=== PATIENT | female | born 1980 | race Caucasian/White ===

== ENCOUNTER 2023-12-24 17:14 | Outpatient (OUT) | payer BC, SELFPAY ==
--- NOTE | 2023-12-24 17:29 | XR_ITS ---
The [address] [address] Patient Name: AMBAR VARGAS MRN: [id number] date: 1980 Sex: F Assigned Patient Location: [facility] Current Patient Location: Accession/Order Number: [id number] Exam Date: 12/24/2023 17:23 Report Date: 12/28/2023 07:52 At the request of: MANJU BAY Procedure: XR knee LT 3V PROCEDURE: XR knee LT 3V HISTORY: Knee internal derangement, M23.90 COMPARISON: None. FINDINGS: BONES:No fracture, acute abnormality, or significant arthropathy. No appreciable joint space narrowing, but evaluation is slightly limited by projection. SOFT TISSUES:No visible soft tissue swelling. EFFUSION:None visible. OTHER: Negative. XR/XR knee LT 3V IMPRESSION: 1. No acute bone abnormality or appreciable degenerative changes. Electronically authenticated by: JOHN YOUNG Date: 12/28/2023 07:52
== END 2023-12-24 17:15 | disposition home or self-care (01) ==
PROVIDERS: PCP Family Medicine; Visit Provider Family Medicine
DX: M23.92 Unspecified internal derangement of left knee (principal)
CPT/HCPCS: 73562

== ENCOUNTER 2024-01-06 15:52 | Outpatient (OUT) | payer BC, SELFPAY ==
--- NOTE | 2024-01-06 | US_ITS ---
The [place] [id number] Patient Name: AMBAR VARGAS MRN: [id number] date: 1980 Sex: F Assigned Patient Location: MRI Current Patient Location: Accession/Order Number: [id number] Exam Date: 01/06/2024 16:36 Report Date: 01/07/2024 07:21 At the request of: MANJU BAY Procedure: US venous doppler LE LT CLINICAL DATA: Left leg edema PROCEDURE: Left lower extremity venous duplex ultrasound TECHNIQUE: Tejada-scale, color flow, and waveform spectral analysis was performed of the left lower extremity. FINDINGS: The left common femoral, profunda femoral, femoral, and popliteal veins were compressible. The saphenous vein was compressible. No venous thrombosis was seen. The veins fill with color Doppler. Augmentation was normal. US/US venous doppler LE LT IMPRESSION: 1. No acute lower extremity deep venous thrombosis. 2. No superficial venous thrombosis. Electronically authenticated by: Eileen CHAVEZ Date: 01/07/2024 07:21
--- NOTE | 2024-01-06 | MR_ITS ---
[address] [address] Patient Name: AMBAR VARGAS MRN: [id number] date: 1980 Sex: F Assigned Patient Location: MRI Current Patient Location: MRI Accession/Order Number: [id number] Exam Date: 01/06/2024 16:01 Report Date: 01/07/2024 09:15 At the request of: MANJU BAY Procedure: MR knee LT wo con EXAMINATION: MR knee LT wo con HISTORY: Internal Derangment COMPARISON: No relevant comparison available. TECHNIQUE: A complete multi-planar MRI was performed. FINDINGS: MEDIAL COMPARTMENT MEDIAL MENISCUS: Complex tear of the medial meniscus with a horizontal component extending from the anterior to the posterior horn through the body and a vertical component in the posterior horn extending from the superior to the inferior articular surface CARTILAGE: No visible defect. BONES: No marrow pathology, fracture, or significant arthropathy. MCL AND MEDIAL CAPSULE: Normal medial collateral ligament and medial capsule. LATERAL COMPARTMENT LATERAL MENISCUS: No visible tear or significant degeneration. CARTILAGE: No visible defect. BONES: No marrow pathology, fracture, or significant arthropathy. LCL/POSTEROLAT COMPLEX: Normal lateral collateral ligament, fascicles, lateral capsule and ligaments. ANTERIOR COMPARTMENT PATELLA: No marrow pathology, fracture, or significant arthropathy. CARTILAGE: No visible defect. TENDONS: Normal. EFFUSION: Moderate joint effusion. ACL: Normal appearing ligament. PCL: Normal appearing ligament. MENISCOFEMORAL: Normal meniscofemoral ligaments. OTHER: Negative. MR/MR knee LT wo con IMPRESSION: Complex tear of the medial meniscus with moderate joint effusion Electronically authenticated by: MARYCARMEN KEITA Date: 01/07/2024 09:15
== END 2024-01-06 15:53 | disposition home or self-care (01) ==
LOC: MRI 15:52
PROVIDERS: PCP Family Medicine; Visit Provider Family Medicine
DX: M23.90 Unspecified internal derangement of unspecified knee (principal); S83.232A Complex tear of medial meniscus, current injury, left knee, initial encounter
CPT/HCPCS: 73721; 93971

== ENCOUNTER 2024-02-02 09:44 | Outpatient (OUT) | payer BC, SELFPAY ==
--- OUTSIDE RECORDS SUMMARY | 2024-02-02 10:02 | XMS_ITS | CCD ---
Author Organization [facility] Care Team Providers Care Tire Assembler Name Role Phone SHANIQUE, DR NUNES Primary Care Unavailable GAGE, DR THOMAS Consulting Unavailable GAGE, DR THOMAS Admitting Unavailable GAGE, DR THOMAS Attending Unavailable GAGE, DR THOMAS Attending Unavailable ELYSIAY, DR NUNES Primary Care Unavailable GAGE, DR THOMAS Admitting Unavailable GAGE, DR THOMAS Attending Unavailable SHANIQUE, DR NUNES Primary Care Unavailable GAGE, DR THOMAS Consulting Unavailable GAGE, DR THOMAS Admitting Unavailable LIYAH II, FARTUN Consulting Unavailable KRISTIAN ROLLE Consulting Unavailable NAEEM LI Consulting Unavailable GAGE, DR THOMAS Attending Unavailable SHANIQUE, DR NUNES Primary Care Unavailable GAGE, DR THOMAS Consulting Unavailable GAGE, DR THOMAS Admitting Unavailable SHANIQUE, DR NUNES Admitting Unavailable SHANIQUE, DR NUNES Attending Unavailable SHANIQUE, DR NUNES Primary Care Unavailable SHANIQUE, DR NUNES Primary Care Unavailable GAGE, DR THOMAS Admitting Unavailable GAGE, DR THOMAS Attending Unavailable SHANIQUE, DR NUNES Admitting Unavailable SHANIQUE, DR NUNES Attending Unavailable SHANIQUE, DR NUNES Primary Care Unavailable SHANIQUE, DR NUNES Primary Care Unavailable GAGE, DR THOMAS Admitting Unavailable GAGE, DR THOMAS Attending Unavailable GAGE, DR THOMAS Consulting Unavailable SHANIQUE, DR NUNES Admitting Unavailable SHANIQUE, DR NUNES Attending Unavailable SHANIQUE, DR NUNES Consulting Unavailable SHANIQUE, DR NUNES Primary Care Unavailable SHANIQUE, DR NUNES Primary Care Unavailable GAGE, DR THOMAS Consulting Unavailable GAGE, DR THOMAS Admitting Unavailable GAGE, DR THOMAS Attending Unavailable MARYCARMEN JIMENEZ Consulting Unavailable Unavailable Primary Care Provider UnavailMARYCARMEN Christianson Referring Unavailabl e PROVIDER, UNKNOWN Attending Unavailable PROVIDER, UNKNOWN Admitting Unavailable Layla Sharif Attending Unavailab Layla Bernal Admitting Unavailab MANJU Blanc Primary Care Unavailable Allergies Allergy Classification Reported Allergen(s) Allergy Type Date of Onset Reaction(s) Facility (1 source) Erythromycin Drug Allergy 06-08-2014 [facility] Repository (1 source) Erythromycin; Translations: [erythromycin] Drug Allergy [facility] Repository Problems Active Problems Problem Classification Problem Date Documented Date Episodic/Chronic Asthma (1 source) Unspecified asthma, uncomplicated; Translations: [UNSPECIFIED ASTHMA UNCOMPLICATED] Onset: 08-21-2021 Chronic Immunizations and screening for infectious disease (2 sources) Encounter for screening for human papillomavirus (HPV); Translations: [Encounter for screening for infections with a predominantly sexual mode of transmission] Onset: 11-11-2021 Episodic Menstrual disorders (6 sources) Excessive and frequent menstruation with irregular cycle; Translations: [Dysmenorrhea, unspecified] Onset: 03-14-2022 Chronic Other female genital disorders (1 source) Unspecified dyspareunia; Translations: [UNSPECIFIED DYSPAREUNIA] Onset: 03-21-2022 Chronic Other female genital disorders (1 source) Abnormal uterine and vaginal bleeding, unspecified; Translations: [ABNORMAL UTERINE VAGINAL BLEED UNS] Onset: 03-14-2022 Chronic Other female genital disorders (1 source) Other specified noninflammatory disorders of cervix uteri; Translations: [OTH SPEC NONINFLAMM D/O CERV UTERI] Onset: 02-17-2022 Episodic Other screening for suspected conditions (not mental disorders or infectious disease) (5 sources) Encounter for screening for malignant neoplasm of cervix; Translations: [Encounter for screening for malignant neoplasm of rectum] Onset: 08-21-2021 Episodic Other upper respiratory infections (2 sources) Sinusitis; Translations: [Chronic sinusitis, unspecified] Onset: 11-15-2022 11-15-2022 Chronic Substance-related disorders (1 source) Nicotine dependence, cigarettes, uncomplicated; Translations: [NICOTINE DEPEND CIGARETTES UNCOMP] Onset: 03-21-2022 Chronic Unclassified (1 source) PERSONAL HISTORY OF COVID-19; Translations: [PERSONAL HISTORY OF COVID-19] Onset: 03-21-2022 Unclassified (4 sources) CONTACT W/AND (SUSP) EXPOS COVID-19; Translations: [CONTACT W/AND (SUSP) EXPOS COVID-19] Onset: 08-21-2021 Past or Other Problems Problem Classification Problem Date Documented Date Episodic/Chronic Deficiency and other anemia (1 source) Anemia, unspecified; Translations: [ANEMIA UNSPECIFIED] Onset: 08-21-2021 Episodic Diabetes mellitus without complication (1 source) Other abnormal glucose; Translations: [OTHER ABNORMAL GLUCOSE] Onset: 08-21-2021 Episodic Other female genital disorders (4 sources) Other specified noninflammatory disorders of vagina; Translations: [OTH SPEC NONINFLAMMATORY D/O VAGINA] Onset: 11-07-2021 Episodic Unclassified (1 source) CONTACT W/AND (SUSP) EXPOS COVID-19; Translations: [CONTACT W/AND (SUSP) EXPOS COVID-19] Onset: 08-17-2021 Results Test Name Value Interpretation Reference Range Facility Coding Queryon 04-11-2023 Coding Query Can you please document the HPI, ROS and physical exam for this chart? Thanks. Layla Sharif MD [Transcribed on: 04/11/2023 13:00 EST] RR Normal [facility] CT Head or Brain w/o Contras ton 04-08-2023 CT Head or Brain w/o Contrast HEAD CT WITHOUT CONTRAST: 04/08/2023 1:22 PM EST Clinical Data: headache Comparison: April 20, 2014 Unenhanced axial data from base to vertex. INTRA-AXIAL: No acute hemorrhage. No acute infarction is evident. EXTRA-AXIAL: No acute hemorrhage. No focal fluid collection. BRAIN VOLUME: Unremarkable for age. VENTRICLES: No hydrocephalus PARANASAL SINUSES: Interval bilateral FESS. Moderate rind of mucosal thickening right maxillary antrum. Modest mucosal disease in the left maxillary antrum. Modest disease in aspects of the anterior ethmoids. These findings are greater than on the prior study. MASTOIDS: Clear. CALVARIUM: No acute finding. EXTRACALVARIAL: No acute findings IMPRESSION: 1. No evidence of acute intracranial process on this unenhanced study as described.. 2. Paranasal sinuses as described. All CT scans at this facility use dose modulation, iterative reconstruction, and/or weight based dosing when appropriate to reduce radiation dose to as low as reasonably achievable. Final Dictated by: Rodri Llanos MD Dictated DT/TM: 04/08/23 1:42 Signed (Electronic Signature): Rodri Llanos MD 04/08/23 1:48 pm Technologist: YURI Dalton [facility] ED Clinical Summaryon 2023 ED Clinical Summary [facility] - Emergency Department [address] [place] [id number] ED Clinical Summary PERSON INFORMATION Name: AMBAR VARGAS Age: 42 Years Sex: FEMALE : 1980 MRN: Acct#: Visit Reason: Headache; HEADACHE Arrival: 04/08/2023 11:57:20 Discharge: 04/08/2023 16:15:00 LOS: 000 04:18 Check In: 04/08/2023 11:57:20 Checkout:04/08/2023 16:15:00 Address: [facility] [address] PCP: MANJU BAY PROVIDER INFORMATION Provider Role Assigned Unassigned Anjum Mcclure RN ED Nurse 04/08/2023 12:22:44 Layla Sharif MD ED Provider 04/08/2023 13:05:12 VITALS INFORMATION Vital Sign Triage Latest Temperature Tympanic Temperature Temporal Artery 36.7 DegC Pulse Rate O2 Sat 100 % 100 % Respiratory Rate 16 br/min 16 br/min Blood Pressure /104 mmHg /104 mmHg MEDICAL INFORMATION Medications Given: Medication Dose Route ketorolac 30 mg Intramuscular diphenhydrAMINE 50 mg Intramuscular ondansetron 4 mg Oral amoxicillin-clavulana te (amoxicillin-clavulan ate 875 mg-125 mg tablet) 1 tab(s) Oral pseudoephedrine 30 mg Oral Allergy Information: erythromycin PHYSICIAN DOCUMENTATION DISCHARGE INFORMATION: Discharge Disposition: Home Discharge Location: Home PATIENT EDUCATION INFORMATION Instructions: Sinus Infection, Adult; Sinus Infection, Adult Follow-Up: With: Address: When: DARLENE SMITH [address] [place] [id number] Within 3 to 5 days Comments: Call for follow up appointment DIAGNOSIS: 1:Sinusitis Patient Understands: Yes - Patient/family/guadalupe diego verbalizes understanding of instructions given Comment: Normal [facility] ED Patient Summaryon 024 ED Patient Summary [facility] - Emergency Department [address] [place] [address] PATIENT DISCHARGE INSTRUCTIONS Patient Information Name: AMBAR VARGAS Age: 42 Years Date of : 1980 Reason For Visit: Headache; HEADACHE Arrival Time: 04/08/2023 11:57:20 Primary Care Physician: MANJU BAY Attending Physician: Layla Sharif MD Comment: Visit Diagnosis: Diagnoses This Visit Headache ([id number]) Sinusitis (J32.9) The Pharmacy at [facility] is open Friday through Friday from 9A to 6P and Friday and Friday from 9A to 5P Prescription Information: If you have been given a prescription for narcotics, seek immediate medical attention if you have any difficulty breathing or any sudden status changes such as confusion and sleepiness. If you or anyone you know is experiencing suicidal thoughts, mental health, alcohol and/or drug addiction problems; contact the [facility] 23/09 Crisis Hotline -Text 3ZORW af 663234. If you received any narcotics, sedation, or any other medication that causes drowsiness for the next 24 hours, unless otherwise directed: ? Do not drive a car. ? Do not operate machinery such as power tools, lawn mowers, drills, sewing machines, or stoves ? Avoid alcoholic beverages and drugs for allergies, nerves, or sleep ? Do not make important personal or business decisions or sign any legal documents With: Address: When: DARLENE SMITH [address] [place] [id number] Within 3 to 5 days Comments: Call for follow up appointment Medication Information: The exam and treatment you received today in the [facility] were for an urgent problem and are not intended as complete care. It is important for you to follow up with a doctor, nurse practitioner, or physician?s marketing communications assistant for ongoing care. If your symptoms become worse or you do not improve as expected and you are unable to reach your usual health care provider, you should return to the Emergency Department, we are available 24 hours a day. For those patients who have received Radiology results, the interpretation of your X-ray as given to you by our Emergency Department physician is only a preliminary report. The Radiologist will review your films and if there is a change in the diagnosis you will be notified by phone. Please make sure you have provided a working phone number so we can reach you if necessary. In the event that you had a lab culture while you were a patient in the Emergency Department, you will be notified by phone if there is a need to change your antibiotic. Please make sure you have provided a working phone number so we can reach you if necessary. [facility] Emergency Department has provided you with a complete list of medications post discharge. Please inform your land inspector/provider of your visit and for further instruction on these medications. Any specific questions regarding your chronic medications and dosages should be discussed with your primary care physician(s) and/or pharmacist. New Medications [facility], [address] [place] [phone], [phone] amoxicillin-clavulana te (amoxicillin-clavulan ate 875 mg-125 mg oral tablet) 1 tab(s) Oral (given by mouth) Every 12 hours scheduled time for 10 Days. Refills: 0. Printed Prescriptions amoxicillin (amoxicillin 875 mg oral tablet) 1 tab(s) Oral (given by mouth) Every 12 hours scheduled time for 10 Days. Refills: 0. Visit Information Allergies: Substance Reaction Symptoms Type Comments erythromycin Drug Vital Signs: Vitals and Measurements this Visit (last charted value for your 04/08/2023 visit) Vital Signs This Visit Temperature Temporal Artery: 36.7 DegC Heart Rate Monitored: 90 bpm Respiratory Rate: 16 br/min Systolic Blood Pressure: 135 mmHg Diastolic Blood Pressure: 104 mmHg SpO2: 100 % Oxygen Therapy: Room air Measurements This Visit Height/Length Measured: 165.10 cm Weight Measured: 90.26 kg Weight Dosin.260 kg Body Mass Index: 33.11 kg/m2 Problems List: Problem Onset Comments Tobacco user Patient Education Sinus Infection, Adult A sinus infection, also called sinusitis, is inflammation of your sinuses. Sinuses are hollow spaces in the bones around your face. Your sinuses are located: ? Around your eyes. ? In the middle of your forehead. ? Behind your nose. ? In your cheekbones. Mucus normally drains out of your sinuses. When your nasal tissues become inflamed or swollen, mucus can become trapped or blocked. This allows bacteria, viruses, and fungi to grow, which leads to infection. Most infections of the sinuses are caused by a virus. A sinus infection can develop quickly. It can last for up to 4 weeks (acute) or for more than 12 weeks (chron (more content not included)... Normal [facility] XR PARANASAL SINUSES MINIMUM 4 VIEWSon 11-15-2022 XR PARANASAL SINUSES MINIMUM 4 VIEWS EXAMINATION: XR PARANASAL SINUSES MINIMUM 4 VIEWS 11/15/2022 11:18 AM CLINICAL HISTORY: SINUSITIS ASSOCIATED DIAGNOSIS: Sinusitis, unspecified chronicity, unspecified location ORDERING PROVIDER: MARYCARMEN NICHOLSON TECHNOLOGISTS NOTE: Unable to remove hair tie for imaging COMPARISON: None FINDINGS Bones: Grossly intact meliza calvarium, temporal bones and facial bones. Paranasal sinuses and mastoid air cells: Adequately pneumatized and developed without soft tissue opacification of the left maxillary sinus.. Visualized soft tissues: Unremarkable. IMPRESSION: Left maxillary sinusitis. MACRO: None [facility] EXAMINATION: XR PARANASAL SINUSES MINIMUM 4 VIEWS 11/15/2022 11:18 AM CLINICAL HISTORY: SINUSITIS ASSOCIATED DIAGNOSIS: Sinusitis, unspecified chronicity, unspecified location ORDERING PROVIDER: MARYCARMEN NICHOLSON TECHNAUSTYN NOTE: Unable to remove hair tie for imaging COMPARISON: None FINDINGS Bones: Grossly intact meliza calvarium, temporal bones and facial bones. Paranasal sinuses and mastoid air cells: Adequately pneumatized and developed without soft tissue opacification of the left maxillary sinus.. Visualized soft tissues: Unremarkable. IMPRESSION: Left maxillary sinusitis. MACRO: None Eugene Kerns, - 11/15/2022 EXAMINATION: XR PARANASAL SINUSES MINIMUM 4 VIEWS 11/15/2022 11:18 AM CLINICAL HISTORY: SINUSITIS ASSOCIATED DIAGNOSIS: Sinusitis, unspecified chronicity, unspecified location ORDERING PROVIDER: MARYCARMEN NICHOLSON TECHNOLOGISTS NOTE: Unable to remove hair tie for imaging COMPARISON: None FINDINGS Bones: Grossly intact meliza calvarium, temporal bones and facial bones. Paranasal sinuses and mastoid air cells: Adequately pneumatized and developed without soft tissue opacification of the left maxillary sinus.. Visualized soft tissues: Unremarkable. IMPRESSION: Left maxillary sinusitis. MACRO: None [facility] Radiology Study observation (narrative) [facility] XR Sinuses ViewsOrdered By: Eugene Chapman on 11-15-2022 [facility]: BUNon 03-15-2022 Urea nitrogen [Mass/Vol] 11.0 mg/dL Normal 7.0-18.0 [facility] Comment on above: Performed By: #### C VDTB #### [facility] [address] [place] [address] Dr. Hali Bal CBC AUTO DIFFon 03-15-2022 BASO # 0.0 103/ul Normal 0.0-0.1 [facility] Comment on above: Performed By: #### C BC #### [facility] [address] [place] [address] Dr. Hali Bal Basophils/100 WBC (Bld) 0.2 % Normal 0.2-2.0 [facility] Comment on above: Performed By: #### C BC #### [facility] [address] [place] [address] Dr. Hali Bal EO # 0.0 103/ul Normal 0.0-0.7 [facility] Comment on above: Performed By: #### C BC #### [facility] [address] [place] [address] Dr. Hali Bal Eosinophils/100 WBC (Bld) 0.1 % Critically low 0.9-7.0 [facility] Comment on above: Performed By: #### C BC #### [facility] [address] [place] [address] Dr. Hali Bal Erythrocyte distribution width (RBC) [Ratio] 13.3 % Normal 11.0-15.0 [facility] Comment on above: Performed By: #### C BC #### [facility] [address] [address] [address] Hali Bal Hematocrit (Bld) [Volume fraction] 39.6 % Normal 36.0-48.0 [facility] Comment on above: Performed By: #### C BC #### [facility] [address] [address] [address] Hali Bal Hemoglobin (Bld) [Mass/Vol] 11.8 g/dL Critically low 12.0-16.0 [facility] Comment on above: Performed By: #### C BC #### [facility] [address] [address] [address] Hali Bal IG # 0.11 10e3/ul Critically high 0.00-0.03 [facility] Comment on above: Performed By: #### C BC #### [facility] [address] [place] [address] Dr. Hali Bal IG % 0.6 % Critically high 0.0-0.5 [facility] Comment on above: Performed By: #### C BC #### [facility] [address] [place] [address] Dr. Hali Bal LYMPH # 2.6 103/ul Normal 1.2-3.8 [facility] Comment on above: Performed By: #### C BC #### [facility] [address] [place] [address] Dr. Hali Bal Lymphocytes/100 WBC (Bld) 15.2 % Critically low 20.5-60.0 [facility] Comment on above: Performed By: #### C BC #### [facility] [address] [place] [address] Dr. Hali Bal MANUAL DIFF REQ NO Normal [facility] Comment on above: Performed By: #### C BC #### [facility] [address] [place] [address] Dr. Hali Bal MCH (RBC) [Entitic mass] 29.4 pg Normal 26.7-34.0 [facility] Comment on above: Performed By: #### C BC #### [facility] [address] [place] [address] Dr. Hali Bal MCHC (RBC) [Mass/Vol] 29.8 g/dL Critically low 29.9-35.2 [facility] Comment on above: Performed By: #### C BC #### [facility] [address] [address] [address] Hali Bal MCV (RBC) [Entitic vol] 98.8 fL Normal 81.0-99.0 [facility] Comment on above: Performed By: #### C BC #### [facility] [address] [address] [address] Hali Bal MONO # 1.2 103/ul Critically high 0.3-0.8 [facility] Comment on above: Performed By: #### C BC #### [facility] [address] [place] [address] Dr. Hali Bal Monocytes/100 WBC (Bld) 6.8 % Normal 1.7-12.0 [facility] Comment on above: Performed By: #### C BC #### [facility] [address] [place] [address] Dr. Hali Bal NEUT # 13.1 103/ul Critically high 1.4-6.5 [facility] Comment on above: Performed By: #### C BC #### [facility] [address] [place] [address] Dr. Hali Bal Neutrophils/100 WBC (Bld) 77.1 % Critically high 43.0-75.0 [facility] Comment on above: Performed By: #### C BC #### [facility] [address] [address] [address] Hali Bal Platelet mean volume (Bld) [Entitic vol] 9.7 fL Normal 9.5-13.5 [facility] Comment on above: Performed By: #### C BC #### [facility] [address] [place] [address] Dr. Hali Bal PLT 289 103/ul Normal 150-450 [facility] Comment on above: Performed By: #### C BC #### [facility] [address] [address] [address] Hali Bal RBC 4.01 106/ul Critically low 4.20-5.40 [facility] Comment on above: Performed By: #### C BC #### [facility] [address] [place] [address] Dr. Hali Bal WBC 17.0 103/ul Critically high 4.0-11.0 [facility] Comment on above: Performed By: #### C BC #### [facility] [address] [place] [address] Dr. Hali Bal CREATININEon 03-15-2022 Creatinine [Mass/Vol] 0.68 mg/dL Normal 0.55-1.02 [facility] Comment on above: Performed By: #### C VDTBH #### [facility] [address] [place] [address] Dr. Hali Bal EGFR-AF STATELESS >60 Normal >=60 [facility] Comment on above: Performed By: #### C VDTBH #### [facility] [address] [place] [address] Dr. Hali Bal EGFR-NON AF STATELESS >60 Normal >=60 [facility] Comment on above: Performed By: #### C VDTBH #### [facility] [address] [place] [address] Dr. Hali Bal CBC AUTO DIFFon 03-14-2022 BASO # 0.0 103/ul Normal 0.0-0.1 [facility] Comment on above: Performed By: #### C BC #### [facility] [address] [place] [address] Dr. Hali Bal Basophils/100 WBC (Bld) 0.4 % Normal 0.2-2.0 [facility] Comment on above: Performed By: #### C BC #### [facility] [address] [place] [address] Dr. Hali aBl EO # 0.1 103/ul Normal 0.0-0.7 [facility] Comment on above: Performed By: #### C BC #### [facility] [address] [place] [address] Dr. Hali Bal Eosinophils/100 WBC (Bld) 1.6 % Normal 0.9-7.0 [facility] Comment on above: Performed By: #### C BC #### [facility] [address] [place] [address] Dr. Hali Bal Erythrocyte distribution width (RBC) [Ratio] 13.2 % Normal 11.0-15.0 [facility] Comment on above: Performed By: #### C BC #### [facility] [address] [place] [address] Dr. Hali Bal Hematocrit (Bld) [Volume fraction] 43.7 % Normal 36.0-48.0 [facility] Comment on above: Performed By: #### C BC #### [facility] [address] [place] [address] Dr. Hali Bal Hemoglobin (Bld) [Mass/Vol] 13.5 g/dL Normal 12.0-16.0 [facility] Comment on above: Performed By: #### C BC #### [facility] [address] [place] [address] Dr. Hali Bal IG # 0.04 10e3/ul Critically high 0.00-0.03 [facility] Comment on above: Performed By: #### C BC #### [facility] [address] [place] [address] Dr. Hali Bal IG % 0.5 % Normal 0.0-0.5 [facility] Comment on above: Performed By: #### C BC #### [facility] [address] [place] [address] Dr. Hali Bal LYMPH # 2.5 103/ul Normal 1.2-3.8 [facility] Comment on above: Performed By: #### C BC #### [facility] [address] [place] [address] Dr. Hali Bal Lymphocytes/100 WBC (Bld) 30.4 % Normal 20.5-60.0 [facility] Comment on above: Performed By: #### C BC #### [facility] [address] [place] [address] Dr. Hali Bal MANUAL DIFF REQ NO Normal [facility] Comment on above: Performed By: #### C BC #### [facility] [address] [place] [address] Dr. Hali Bal MCH (RBC) [Entitic mass] 29.5 pg Normal 26.7-34.0 [facility] Comment on above: Performed By: #### C BC #### [facility] [address] [place] [address] Dr. Hali Bal MCHC (RBC) [Mass/Vol] 30.9 g/dL Normal 29.9-35.2 [facility] Comment on above: Performed By: #### C BC #### [facility] [address] [place] [address] Dr. Hali Bal MCV (RBC) [Entitic vol] 95.6 fL Normal 81.0-99.0 [facility] Comment on above: Performed By: #### C BC #### [facility] [address] [place] [address] Dr. Hali aBl MONO # 0.6 103/ul Normal 0.3-0.8 [facility] Comment on above: Performed By: #### C BC #### [facility] [address] [place] [address] Dr. Hali Bal Monocytes/100 WBC (Bld) 7.0 % Normal 1.7-12.0 [facility] Comment on above: Performed By: #### C BC #### [facility] [address] [place] [address] Dr. Hali Bal NEUT # 4.9 103/ul Normal 1.4-6.5 [facility] Comment on above: Performed By: #### C BC #### [facility] [address] [place] [address] Dr. Hali Bal Neutrophils/100 WBC (Bld) 60.1 % Normal 43.0-75.0 [facility] Comment on above: Performed By: #### C BC #### [facility] [address] [place] [address] Dr. Hali Bal Platelet mean volume (Bld) [Entitic vol] 9.3 fL Critically low 9.5-13.5 [facility] Comment on above: Performed By: #### C BC #### [facility] [address] [address] [address] Hali Bal PLT 305 103/ul Normal 150-450 [facility] Comment on above: Performed By: #### C BC #### [facility] [address] [address] [address] Hali Bal RBC 4.57 106/ul Normal 4.20-5.40 [facility] Comment on above: Performed By: #### C BC #### [facility] [address] [address] [address] Hali Bal WBC 8.2 103/ul Normal 4.0-11.0 [facility] Comment on above: Performed By: #### C BC #### [facility] [address] [place] [address] Dr. Hali Bal PREG QUANT HCGon 03-14-2022 HCG QUANT 1 mIU/mL Normal [facility] Comment on above: Performed By: #### P REGQNT #### [facility] [address] [address] [address] Hali Bal HCG RANGE SEE BELOW Normal [facility] Comment on above: Result Comment: 5-50 0.2-1 WEEK 50-500 1-2 WEEKS 100-5,000 2-3 WEEKS 500-10,000 3-4 WEEKS 1,000-50,000 4-5 WEEKS 10,000-100,000 5-6 WEEKS 15,000-200,000 6-8 WEEKS 10,000-100,000 2-3 MONTHS Performed By: #### P REGQNT #### [facility] [address] [place] [address] Dr. Hali Bal Covid-19 PCR ([facility])on SARS-CoV-2 (COVID-19) RNA MCKINLEY+probe Ql (Unsp spec) Not detected Normal NOT DETECTED [facility] Comment on above: Result Comment: This test is not yet approved or cleared by the [place] FDA. When there are no FDA-approved or cleared tests available, and other criteria are met, FDA can make tests available under an emergency access mechanism called an Emergency Use Authorization (EUA). The EUA for this test is supported by the Medical Office Technician of Health and Human Service's (HHS's) declaration that circumstances exist to justify the emergency use of in vitro diagnostics for the detection and/or diagnosis of the virus that causes COVID-19. This EUA will remain in effect (meaning this test can be used) for the duration of the COVID-19 declaration justifying emergency of IVDs, unless it is terminated or revoked by FDA (after which the test may no longer be used). When diagnostic testing is negative, the possibility of a false negative should be considered in the context of a patient's recent exposures and the presence of clinical signs and symptoms consistent with SARS-CoV-2. Performed By: #### C VDTB #### [facility] [address] [place], [place] [address] Dr. Hali Bal TYPE AND SCREENon 03-11-2022 TYPE AND SCREEN Negative Normal [facility] Comment on above: Performed By: #### C VDTB #### [facility] [address] [place], [place] [address] Dr. Hali Bal US PELVIS AND TRANSVAGon US PELVIS AND TRANSVAG EXAM: Pelvic ultrasound. HISTORY: . Excessive menstruation with irregular cycle . COMPARISON: None. TECHNIQUE: Transabdominal and transvaginal scanning was performed. Endings: Scanning of the pelvis demonstrates uterus to be anteflexed and measures 6.8 x 5.5 x 3.7 cm. Endometrial complex measures 6 mm. Right ovary measures 1.9 x 1.5 x 1.3 cm. Color-flow is noted. Resistive indexes 0.49. No masses are noted. Left ovary measures 2 x 1.3 x 1 cm. Color-flow is noted. Resistive indexes 0.49. No masses are noted. No fluid is noted in the cul-de-sac. Nabothian cyst are noted. Impression: 1. Normal-appearing uterus and endometrial complex. 2. Nabothian cysts. 3. Normal-appearing ovaries. Electronically authenticated by: MARYCARMEN JIMENEZ Date: 2022-02-14 08:14 Normal [facility] CBC AUTO DIFFon 02-13-2022 BASO # 0.0 103/ul Normal 0.0-0.1 [facility] Comment on above: Performed By: #### C BC #### [facility] [address] [place] [address] Dr. Hali Bal Basophils/100 WBC (Bld) 0.4 % Normal 0.2-2.0 [facility] Comment on above: Performed By: #### C BC #### [facility] [address] [place] [address] Dr. Hali Bal EO # 0.1 103/ul Normal 0.0-0.7 [facility] Comment on above: Performed By: #### C BC #### [facility] [address] [place] [address] Dr. Hali Bal Eosinophils/100 WBC (Bld) 0.9 % Normal 0.9-7.0 [facility] Comment on above: Performed By: #### C BC #### [facility] [address] [place] [address] Dr. Hali Bal Erythrocyte distribution width (RBC) [Ratio] 12.9 % Normal 11.0-15.0 [facility] Comment on above: Performed By: #### C BC #### [facility] [address] [place] [address] Dr. Hali Bal Hematocrit (Bld) [Volume fraction] 39.1 % Normal 36.0-48.0 [facility] Comment on above: Performed By: #### C BC #### [facility] [address] [place] [address] Dr. Hali Bal Hemoglobin (Bld) [Mass/Vol] 13.0 g/dL Normal 12.0-16.0 [facility] Comment on above: Performed By: #### C BC #### [facility] [address] [place] [address] Dr. Hali Bal IG # 0.03 10e3/ul Normal 0.00-0.03 [facility] Comment on above: Performed By: #### C BC #### [facility] [address] [place] [address] Dr. Hali Bal IG % 0.4 % Normal 0.0-0.5 [facility] Comment on above: Performed By: #### C BC #### [facility] [address] [place] [address] Dr. Hali Bal LYMPH # 3.1 103/ul Normal 1.2-3.8 [facility] Comment on above: Performed By: #### C BC #### [facility] [address] [place] [address] Dr. Hali Bal Lymphocytes/100 WBC (Bld) 38.1 % Normal 20.5-60.0 [facility] Comment on above: Performed By: #### C BC #### [facility] [address] [place] [address] Dr. Hali Bal MANUAL DIFF REQ NO Normal [facility] Comment on above: Performed By: #### C BC #### [facility] [address] [place] [address] Dr. Hali Bal MCH (RBC) [Entitic mass] 30.0 pg Normal 26.7-34.0 [facility] Comment on above: Performed By: #### C BC #### [facility] [address] [place] [address] Dr. Hali Bal MCHC (RBC) [Mass/Vol] 33.2 g/dL Normal 29.9-35.2 [facility] Comment on above: Performed By: #### C BC #### [facility] [address] [place] [address] Dr. Hali Bal MCV (RBC) [Entitic vol] 90.1 fL Normal 81.0-99.0 [facility] Comment on above: Performed By: #### C BC #### [facility] [address] [place] [address] Dr. Hali Bal MONO # 0.5 103/ul Normal 0.3-0.8 [facility] Comment on above: Performed By: #### C BC #### [facility] [address] [place] [address] Dr. Hali Bal Monocytes/100 WBC (Bld) 6.1 % Normal 1.7-12.0 [facility] Comment on above: Performed By: #### C BC #### [facility] [address] [place] [address] Dr. Hali Bal NEUT # 4.4 103/ul Normal 1.4-6.5 [facility] Comment on above: Performed By: #### C BC #### [facility] [address] [place] [address] Dr. Hali Bal Neutrophils/100 WBC (Bld) 54.1 % Normal 43.0-75.0 [facility] Comment on above: Performed By: #### C BC #### [facility] [address] [place] [address] Dr. Hali Bal Platelet mean volume (Bld) [Entitic vol] 9.3 fL Critically low 9.5-13.5 [facility] Comment on above: Performed By: #### C BC #### [facility] [address] [place] [address] Dr. Hali Bal PLT 271 103/ul Normal 150-450 [facility] Comment on above: Performed By: #### C BC #### [facility] [address] [place] [address] Dr. Hali Bal RBC 4.34 106/ul Normal 4.20-5.40 [facility] Comment on above: Performed By: #### C BC #### [facility] [address] [place] [address] Dr. Hali Bal WBC 8.2 103/ul Normal 4.0-11.0 [facility] Comment on above: Performed By: #### C BC #### [facility] [address] [place] [address] Dr. Hali Bal FREE T4on 02-13-2022 Free T4 [Mass/Vol] 1.38 ng/dL Normal 0.76-1.46 [facility] Comment on above: Performed By: #### C VDTBH #### [facility] [address] [place] [address] Dr. Hali Bal GLYCOHEMOGLOBIN A1Con 2021 ADA RECOMMENDATION SEE BELOW Normal [facility] Comment on above: Result Comment: ADA RECOMMENDED LIMIT 4.0 - 6.0 ADA THERAPEUTIC TARGET < 7.0 ACTION SUGGESTED > 7.0 Performed By: #### A 1C #### [facility] [address] [place] [address] Dr. Hali Bal Glucose [Mass/Vol] 120 mg/dL Normal [facility] Comment on above: Performed By: #### A 1C #### [facility] [address] [place] [address] Dr. Hali Bal HbA1c (Bld) [Mass fraction] 5.8 % Normal 4.5-6.2 [facility] Comment on above: Performed By: #### A 1C #### [facility] [address] [place] [address] Dr. Hali Bal PREG QUANT HCGon 02-13-2022 HCG QUANT 1 mIU/mL Normal [facility] Comment on above: Performed By: #### P REGQNT, TSH #### [facility] [address] [place] [address] Dr. Hali Bal HCG RANGE SEE BELOW Normal [facility] Comment on above: Result Comment: 5-50 0.2-1 WEEK 50-500 1-2 WEEKS 100-5,000 2-3 WEEKS 500-10,000 3-4 WEEKS 1,000-50,000 4-5 WEEKS 10,000-100,000 5-6 WEEKS 15,000-200,000 6-8 WEEKS 10,000-100,000 2-3 MONTHS Performed By: #### P REGQNT, TSH #### [facility] [address] [place] [address] Dr. Hali Bal PROTIMEon 02-13-2022 INR Coag (PPP) [Relative time] 1.02 {INR} Normal [facility] Comment on above: Performed By: #### C VDTBH #### [facility] [address] [place] [address] Dr. Hali Bal INR GUIDELINES SEE BELOW Normal [facility] Comment on above: Result Comment: PANFILO RED INR: 2.0 - 3.0 CONDITIONS NOT LISTED BELOW 2.5 - 3.5 FOR PROSTHETIC HEART VALVE REPLACEMENT 2.5 - 3.5 RECURRENT THROMBOSIS Performed By: #### C VDTBH #### [facility] [address] [place] [address] Dr. Hali Bal PT Coag (PPP) [Time] 11.0 s Normal 9.0-11.6 [facility] Comment on above: Performed By: #### C VDTBH #### [facility] [address] [place] [address] Dr. Hali Bal PTTon 02-13-2022 aPTT Coag (Bld) [Time] 29.6 s Normal 22.3-36.2 [facility] Comment on above: Performed By: #### C VDTBH #### [facility] [address] [place] [address] Dr. Hali Bal TSHon 02-13-2022 TSH 1.944 uIU/mL Normal 0.358-3.740 [facility] Comment on above: Performed By: #### P REGQNT, TSH #### [facility] [address] [place] [address] Dr. Hali Bal PAP ACOG PANEL 2: 30 to 65on 01-06-2022 . . Normal [facility] Comment on above: Result Comment: Perf ormed at: BA Performed By: #### C VDTBH #### [facility] [address] [place] [address] Dr. Hali Bal Age Gdln ACOG Testing 30-65 Normal [facility] Comment on above: Performed By: #### C VDTBH #### [facility] [address] [place] [address] Dr. Hali Bal DIAGNOSIS: Comment Normal [facility] Comment on above: Result Comment: NEGA TIVE FOR INTRAEPITHELIAL LESION OR MALIGNANCY. Performed at: [facility] Performed By: #### C VDTBH #### [facility] [address] [place] [address] Dr. Hali Bal HPV Aptima Negative Normal Negative [facility] Comment on above: Result Comment: This nucleic acid amplification test detects fourteen high-risk HPV types (16,18,31,33,35,39,45,51,52,56,58,59,66,68) without differentiation. Performed at: =G Performed By: #### C VDTBH #### [facility] [address] [address] [address] Hali Bal HPV Genotype Reflex Comment Normal [facility] Comment on above: Result Comment: Crit eria not met, HPV Genotype not performed. Performed at: [facility] Performed By: #### C VDTBH #### [facility] [address] [address] [address] Hali Bal Methodology: Comment Normal [facility] Comment on above: Result Comment: This liquid based ThinPrep(R) pap test was screened with the use of an image guided system. Performed at: [facility] Performed By: #### C VDTBH #### [facility] [address] [place] [address] Dr. Hali Bal Note: Comment Normal [facility] Comment on above: Result Comment: The Pap smear is a screening test designed to aid in the detection of premalignant and malignant conditions of the uterine cervix. It is not a diagnostic procedure and should not be used as the sole means of detecting cervical cancer. Both false-positive and false-negative reports do occur. . Performed at: WB Performed By: #### C VDTBH #### [facility] [address] [place] [address] Dr. Hali Bal Performed by: Comment Normal [facility] Comment on above: Result Comment: Gladys Valentino, Slotter Operator (ASCP) Performed at: BA Performed By: #### C VDTBH #### [facility] [address] [address] [address] Hali Bal Specimen adequacy: Comment Normal [facility] Comment on above: Result Comment: Sati sfactory for evaluation. Endocervical and/or squamous metaplastic cells (endocervical component) are present. Performed at: BA Performed By: #### C VDTBH #### [facility] [address] [address] [address] Hali Bal CHLAMYDIA/GONOCOCCUS MCKINLEY (SW AB/URINE/PAPon 11-10-2021 Chlamydia trachomatis, MCKINLEY Negative Normal Negative [facility] Comment on above: Performed By: #### C T/NGNA #### [facility] [address] [place] [address] Dr. Hali Bal Neisseria gonorrhoeae, MCKINLEY Negative Normal Negative [facility] Comment on above: Performed By: #### C T/NGNA #### [facility] [address] [address] [address] Hali Bal VAGINITIS/VAGINOSIS DNA PROB Colt 11-09-2021 Angela species Negative Normal Negative [facility] Comment on above: Performed By: #### V AGINT #### [facility] [address] [place] [address] Dr. Hali Bal Gardnerella vaginalis Negative Normal Negative [facility] Comment on above: Performed By: #### V AGINT #### [facility] [address] [place] [address] Dr. Hali Bal Trichomonas vaginalis Negative Normal Negative [facility] Comment on above: Performed By: #### V AGINT #### [facility] [address] [place] [address] Dr. Hali Bal Covid-19 PCR ([facility])on 08-01 SARS-CoV-2 (COVID-19) RNA MCKINLEY+probe Ql (Unsp spec) Not detected Normal NOT DETECTED [facility] Comment on above: Result Comment: This test is not yet approved or cleared by the [place] FDA. When there are no FDA-approved or cleared tests available, and other criteria are met, FDA can make tests available under an emergency access mechanism called an Emergency Use Authorization (EUA). The EUA for this test is supported by the Medical Office Technician of Health and Human Service's (HHS's) declaration that circumstances exist to justify the emergency use of in vitro diagnostics for the detection and/or diagnosis of the virus that causes COVID-19. This EUA will remain in effect (meaning this test can be used) for the duration of the COVID-19 declaration justifying emergency of IVDs, unless it is terminated or revoked by FDA (after which the test may no longer be used). When diagnostic testing is negative, the possibility of a false negative should be considered in the context of a patient's recent exposures and the presence of clinical signs and symptoms consistent with SARS-CoV-2. Performed By: #### C VDTBH #### [facility] [address] [place] [address] [id number] [address] Hali Bal SYMPTOMATIC COVID-19 ANTIGEN on 08-17-2021 EUA Statement SEE BELOW Normal [facility] Comment on above: Result Comment: This test has not been FDA cleared or approved, but has been authorized by the FDA under an Emergency Use Authorization (EUA) for use by authorized laboratories certified under CLIA that meet the requirements to perform moderate or high complexity testing. This test has been authorized only for the detection of proteins from SARS-CoV-2, not for any other viruses or pathogens. The emergency use of this test is authorized for the duration of the declaration that circumstances exist justifying the authorization of emergency use of in vitro diagnostic tests for detection and/or diagnosis of Covid-19 under section 564(b)(1) of the Act, 21 U.S.C. 360bbb-3(b)(1), unless the declaration is terminated or authorization is revoked sooner. Performed By: #### C VDTBH #### [facility] [address] [place] [address] [address] Hali Bal SARS-CoV-2 (COVID-19) RNA MCKINLEY+probe Ql (Unsp spec) Negative Normal NEGATIVE [facility] Comment on above: Performed By: #### C VDTBH #### [facility] [address] [place] [address] [address] [address] Hali Bal Encounters Encounter Date Encounter Type Care Provider Facility Start: 04-08-2023 End: 04-08-2023 Emergency department patient visit Layla Sharif Facility:[facility] Start: 11-15-2022 End: 11-16-2022 ambulatory MARYCARMEN NICHOLSON Facility:[facility] Start: 11-15-2022 End: 11-15-2022 Subsequent hospital visit by physician Phe Op X-Ray 4 [facility] Comment on above: Sinusitis, unspecifi ed chronicity, unspecified location Start: 03-14-2022 End: 03-15-[address] WILLIAM CRYSTAL Facility:[facility] Start: 03-14-2022 Encounter for preprocedural laboratory examination DR WILLIAM CRYSTAL [facility] Start: 03-11-2022 End: 03-12-[address] WILLIAM CRYSTAL Facility:[facility] Start: 03-11-2022 End: 03-12-2022 Encounter for preprocedural laboratory examination DR WILLIAM CRYSTAL Facility:[facility] Start: 02-21-[address] WILLIAM CRYSTAL Facility :[facility] Start: 02-13-2022 End: 02-14-[address] MANJU BAY Facility:[facility] Start: 12-31-2021 End: 12-31-[address] MANJU BAY Facility:[facility] Start: 11-27-[address] MANJU BAY Facility :[facility] Start: 11-07-2021 End: 11-07-[address] MANJU BAY Facility:[facility] Start: 08-30-[address] MANJU BAY Facility :[facility] Start: 08-17-2021 End: 08-17-[address] MANJU BAY Facility:[facility] Start: 05-31-[address] MANJU BAY Facility :[facility] Procedures Date Procedure Procedure Detail Performing Clinician Start: 11-15-2022 Radex sinuses parana diandra compl minimum 3 views Marycarmen Nicholson Work Phone: Plan of Treatment Date Care Activity Detail Author Start: 06-11-2032 Tetanus vaccination Tetanus (T d or Tdap) Booster [facility] Start: 2029 Shingles (RZV) Vacci ne (1 of 2) Shingles (RZV) Vaccine (1 of 2) [facility] Start: 12-01-2022 Influenza vaccination Influenza Vacc ine (#1) [facility] Start: 2019 Screening for malign ant neoplasm of breast Mammography [facility] Start: 2006 HPV Vaccine (optiona l start 27-45 years) HPV Vaccine (optional start 27-45 years) [facility] Start: 2000 Screening for malign ant neoplasm of cervix Pap Smear [facility] Start: 1997 Hepatitis C screening Hepatitis C An tibody [facility] Start: 1994 HIV screening HIV Test [facility] Immunizations Immunization Date Immunization Notes Care Provider Fa marianoty 06-11-2022 tetanus toxoid, redu meri diphtheria toxoid, and acellular pertussis vaccine, adsorbed Phe 4 [facility] Payers Date Payer Category Payer Unknown [id number] 2.16.84 [id number] 1979 Unknown [id number] 2.16.84 [id number] 1979 Unknown [id number] 2.16.84 [id number] 1979 Unknown [id number] 2.16.84 [id number] 1979 Unknown [id number] 2.16.84 [id number] 1979 Unknown [id number] 2.16.84 [id number] 1979 Unknown [id number] 2.16.84 [id number] 1979 Unknown [id number] 2.16.84 [id number] 1979 Unknown [id number] 2.16.84 [id number] 1979 Unknown [id number] 2.16.84 [id number] 1979 Unknown [id number] 2.16.8 [id number] 1959 Self-pay [id number] 1960 Unknown [id number] Social History Date Type Detail Facility Tobacco smoking stat [facility] Tobacco smoking consumption unknown [facility] Start: 1979 Sex Assigned At Not on file [facility] Gender identity Not on file [facility] Clinical Note 04-08-2023 Note Date & Type Note Facility 04-08-2023 Note Education Materials Sinus Infection, Adult A sinus infection, also called sinusitis, is inflammation of your sinuses. Sinuses are hollow spaces in the bones around your face. Your sinuses are located: ? Around your eyes. ? In the middle of your forehead. ? Behind your nose. ? In your cheekbones. Mucus normally drains out of your sinuses. When your nasal tissues become inflamed or swollen, mucus can become trapped or blocked. This allows bacteria, viruses, and fungi to grow, which leads to infection. Most infections of the sinuses are caused by a virus. A sinus infection can develop quickly. It can last for up to 4 weeks (acute) or for more than 12 weeks (chronic). A sinus infection often develops after a cold. What are the causes? This condition is caused by anything that creates swelling in the sinuses or stops mucus from draining. This includes: ? Allergies. ? Asthma. ? Infection from bacteria or viruses. ? Deformities or blockages in your nose or sinuses. ? Abnormal growths in the nose (nasal polyps). ? Pollutants, such as chemicals or irritants in the air. ? Infection from fungi. This is rare. What increases the risk? You are more likely to develop this condition if you: ? Have a weak body defense system (immune system). ? Do a lot of swimming or diving. ? Overuse nasal sprays. ? Smoke. What are the signs or symptoms? The main symptoms of this condition are pain and a feeling of pressure around the affected sinuses. Other symptoms include: ? Stuffy nose or congestion that makes it difficult to breathe through your nose. ? Thick yellow or greenish drainage from your nose. ? Tenderness, swelling, and warmth over the affected sinuses. ? A cough that may get worse at night. ? Decreased sense of smell and taste. ? Extra mucus that collects in the throat or the back of the nose (postnasal drip) causing a sore throat or bad breath. ? Tiredness (fatigue). ? Fever. How is this diagnosed? This condition is diagnosed based on: ? Your symptoms. ? Your medical history. ? A physical exam. ? Tests to find out if your condition is acute or chronic. This may include: ? Checking your nose for nasal polyps. ? Viewing your sinuses using a device that has a light (endoscope). ? Testing for allergies or bacteria. ? Imaging tests, such as an MRI or CT scan. In rare cases, a bone biopsy may be done to rule out more serious types of fungal sinus disease. How is this treated? Treatment for a sinus infection depends on the cause and whether your condition is chronic or acute. ? If caused by a virus, your symptoms should go away on their own within 10 days. You may be given medicines to relieve symptoms. They include: ? Medicines that shrink swollen nasal passages (decongestants). ? A spray that eases inflammation of the nostrils (topical intranasal corticosteroids). ? Rinses that help get rid of thick mucus in your nose (nasal saline washes). ? Medicines that treat allergies (antihistamines). ? Bdin-hiq-hpbefyi pain relievers. ? If caused by bacteria, your health care provider may recommend waiting to see if your symptoms improve. Most bacterial infections will get better without antibiotic medicine. You may be given antibiotics if you have: ? A severe infection. ? A weak immune system. ? If caused by narrow nasal passages or nasal polyps, surgery may be needed. Follow these instructions at home: Medicines ? Take, use, or apply bbcr-zcv-cihngjv and prescription medicines only as told by your health care provider. These may include nasal sprays. ? If you were prescribed an antibiotic medicine, take it as told by your health care provider. Do not stop taking the antibiotic even if you start to feel better. Hydrate and humidify ? Drink enough fluid to keep your urine pale yellow. Staying hydrated will help to thin your mucus. ? Use a cool mist humidifier to keep the humidity level in your home above 50%. ? Inhale steam for 10?15 minutes, 3?4 times a day, or as told by your health care provider. You can do this in the bathroom while a hot shower is running. ? Limit your exposure to cool or dry air. Rest ? Rest as much as possible. ? Sleep with your head raised (elevated). ? Make sure you get enough sleep each night. General instructions ? Apply a warm, moist washcloth to your face 3?4 times a day or as told by your health care provider. This will help with discomfort. ? Use nasal saline washes as often as told by your health care provider. ? Wash your hands often with soap and water to reduce your exposure to germs. If soap and water are not available, use hand grape picker. ? Do not smoke. Avoid being around people who are smoking (secondhand smoke). ? Keep all follow-up visits. This is important. Contact a health care provider if: ? You have a fever. ? Your symptoms get (more content not included)... [facility] Clinical Note 03-14-2022 Note Date & Type Note Facility 03-14-2022 Note OPERATIVE NOTE OPERATION DATE: 03/14/2022 PROCEDURE: vNOTES hysterectomy with bilateral salpingectomy with cystoscopy. PREOPERATIVE DIAGNOSIS: Menorrhagia, dysmenorrhea, dyspareunia. POSTOPERATIVE DIAGNOSIS: Menorrhagia, dysmenorrhea, dyspareunia. ANESTHESIA: General. SURGEON: William Crystal D.O. RAIL TRACK LAYER: KAMI Parada URINE OUTPUT: Yellow and clear. BLOOD LOSS: 100 mL. SPECIMEN: Uterus and tubes. FINDINGS: Normal appearing ovaries, uterus and tubes. PROCEDURE: Patient was brought back to the operating room where she was given general anesthesia. She was placed in the dorsal lithotomy position, after being prepped and draped in a sterile fashion. A Mckeon catheter was placed. A weight speculum was placed posterior in the vagina. The cervix was grasped anteriorly and posteriorly with two single tooth tenaculums and placed on traction. A solution of Marcaine, lidocaine and epinephrine and saline was liberally infiltrated into the cervicovaginal junction. The knife was then used to circumscribe the cervicovaginal junction and the posterior cul-de-sac was sharply entered without difficulty. The long weighted duck tail speculum was then placed and the peritoneum was tacked to the vaginal epithelium. We then turned our attention to the uterosacral ligaments which were bilaterally cross clamped, transected and suture ligated, and they were held with hemostats. Attention was then turned to the anterior compartment, where the cervicovaginal junction was similarly divided and the bladder was then sharply and bluntly dissected off the cervix and lower uterine segment, and the anterior cul-de-sac was sharply entered. The epithelium was tacked to the peritoneum. Lateral attachments of the uterus were secured with Manny clamps and suture ligated. The retractors were then removed and were placed by the path inner ring anteriorly followed by posteriorly. Once the ring was seated, the cap was placed and the laparoscopic ports were placed through this cap and the gas was allowed to insufflate the pelvis. A GynLap was placed posteriorly to facilitate mobilization of the bowel and control bleeding. This was later retrieved. The LigaSure device was used to secure the lateral attachments of the uterus on the left side, including the cardinal ligaments and the uterine vasculature, once the utero-ovarian ligament was reached. We turned attention to the right side, where the LigaSure device was used to fully detach the uterus from the pelvic side wall. The ureters were seen visually; before, during and after the pedicles were created. The ureters were bilaterally in normal locations, peristalsing. On the right side, the fallopian tube was easily divided away from the ovary and removed from the field. The left sided ovary was normal and the tube was left attached to the uterus, and the fimbriated end detached from the ovary. The uterus, both fallopian tubes were removed from the field. The GynLap was also removed from the field. The inner ring and gel ports cap were removed and the vaginal retractors were replaced. Lateral figure of eight sutures were placed bilaterally where bleeding occurred behind the ring and no further sutures were needed. The colpopexy was then carried out, passing a stitch posterior to the vaginal wall, capturing the left uterosacral ligament, going across the posterior peritoneum to the right uterosacral ligament and exiting out the vaginal wall posteriorly. The vaginal cuff was then closed in a single running/locking stitch, using O Monocryl and the uterosacral ligaments were cut. Once the vaginal cuff was fully closed, the uterosacral colpopexy stitch was then tied down tightly, elevating the vaginal cuff to the uterosacral ligaments in a satisfactory manner. The Mckeon catheter was removed and the patient was awakened and taken recovery in excellent condition. Sponge, lap, needle counts correct x2. [facility] Evaluation note Note Date & Type Note Facility Evaluation note Diagnosis Sinusitis, unspecified chronicity, unspecified location [facility] in this encounter [facility] Summary Purpose Family History No Family History Records FoundNo Family History Records FoundNo Family History Records Found Advance Directives No Advanced Directives Records FoundNo Advanced Directives Records FoundNo Advanced Directives Records Found Reason for Referral Specialty Diagnoses / Procedures Referred By Contac t Referred To Contact Radiology Diagnoses Sinusitis, unspecified chronicity, unspecified location Procedures XR PARANASAL SINUSES MINIMUM 4 VIEWS Marycarmen Nicholson [address] [place] [id number] [facility] DIAGNOSTIC RADIOLOGY [address] [place] [address] Referral ID Status Reason Start Date Expiration Date Visits Re quested Visits Authorized [id number] Closed 11/15/2022 11/15/2023 1 1 Additional Source Comments INFORMATION SOURCE (unrecogn ized section and content) DATE CREATED AUTHOR 03/27/2022 [facility] DATE CREATED AUTHOR AUTHOR'S ORGANIZ ATION 11/18/2022 [facility] DATE CREATED AUTHOR AUTHOR'S ORGANIZ ATION 04/12/2023 [facility] Reason for Visit (unrecogniz ed section and content) Specialty Diagnoses / Procedures Referred By Contac t Referred To Contact Radiology Diagnoses Sinusitis, unspecified chronicity, unspecified location Procedures XR PARANASAL SINUSES MINIMUM 4 VIEWS Marycarmen Nicholson [address] [place] [address] [facility] DIAGNOSTIC RADIOLOGY [address] [place] [address] Referral ID Status Reason Start Date Expiration Date Visits Re quested Visits Authorized [id number] Closed 11/15/2022 11/15/2023 1 1 FOR RECORDS PERTAINING TO PATIENTS WHO ARE OR HAVE BEEN ENROLLED IN A CHEMICAL DEPENDENCY/SUBSTANCEABUSE PROGRAM, SOME INFORMATION MAY BE OMITTED. This clinical summary was aggregated from multiple sources. Caution should be exercised in using it in the provision of clinical care. This summary normalizes information from multiple sources, and as a consequence, information in this document may materially change the coding, format and clinical context of patient data. In addition, data may be omitted in some cases. CLINICAL DECISIONS SHOULD BE BASED ON THE PRIMARY CLINICAL RECORDS. [employer] provides no warranty or guarantee of the accuracy or completeness of information in this document.
--- NOTE | 2024-02-02 10:12 | ECG_ITS ---
[facility] Test Date: 2024-02-02 Pat Name: AMBAR VARGAS Department: Room: - Gender: Female Hall Tender: : 1980 Requested By: Tristan Maki Order Number: [id number] Reading MD: MANJU BAY Measurements Intervals Homer Rate: 68 P: 20 ND: 145 QRS: 3 QRSD: 97 T: 3 QT: 413 QTc: 442 Interpretive Statements SINUS RHYTHM Non-Specific T wave inversion in III No previous ECG available for comparison Electronically Signed On 02-03-2024 6:37:08 EST by MANJU BAY
--- NOTE | 2024-02-02 10:36 | P.GSHP_ITS ---
History of Present Illness History of Present Illness Chief complaint: left knee medial meniscus tear Narrative: Patient presents for presurgical testing. Please see HPI from Dr. Maki dated January 12, 2024. Review of Systems ROS Narrative REVIEW OF SYSTEMS: Negative except as stated in HPI, ten or more systems reviewed. Constitutional: No fever, chills, weakness ENT: No sore throat or epistaxis Cardiovascular: No edema, chest pain, palpitations, or activity intolerance Respiratory: No shortness of breath, cough, or wheezing Gastrointestinal: No abdominal pain, constipation, diarrhea, or vomiting Genitourinary: No dysuria or hematuria Neurological: No numbness, tingling, weakness, or headache Psychiatric: No mood changes PFSH PFS Medical History (Updated 02/02/24 @ 10:[address] NP) Wears dentures ?Z97.2 - Presence of dental prosthetic device (complete) (partial) (ICD-10) Anemia ?D64.9 - Anemia, unspecified (ICD-10) Anxiety ?F41.9 - Anxiety disorder, unspecified (ICD-10) PTSD (post-traumatic stress disorder) ?F43.10 - Post-traumatic stress disorder, unspecified (ICD-10) Snores ?R06.83 - Snoring (ICD-10) Migraine ?G43.909 - Migraine, unspecified, not intractable, without status migrainosus (ICD-10) Seasonal allergies ?J30.2 - Other seasonal allergic rhinitis (ICD-10) Heartburn ?R12 - Heartburn (ICD-10) Knee pain ?M25.569 - Pain in unspecified knee (ICD-10) Medial meniscus tear ?S83.249A - Other tear of medial meniscus, current injury, unspecified knee, initial encounter (ICD-10) Surgical History (Updated 02/02/24 @ 10:[address] NP) H/O sinus surgery ?Z98.890 - Other specified postprocedural states (ICD-10) History of arthroscopy of knee ?Z98.890 - Other specified postprocedural states (ICD-10) History of hysterectomy ?Z90.710 - Acquired absence of both cervix and uterus (ICD-10) Family History (Updated 02/02/24 @ 10:[address] NP) Other Cancer Family history of diabetes mellitus Family history of hypertension Family history of myocardial infarction Social History (Updated 02/02/24 @ 10:[address] NP) Within the past year, how often did you have a drink containing alcohol: 2-4 times a month Smoking status: Current every day smoker What tobacco products do you use: cigarettes Cigarettes per day: 10 Years smoked: 20 Smoking pack-years: 10.00 Previous occupational history: Carpet Cleaning Technician Highest level of school completed/degree received: Associate degree: academic program Meds Home Medications and Allergies Home Medications ?Medication ?Instructions ?Recorded ?Confirmed ?Type cetirizine 10 mg tablet 10 mg PO DAILY 02/02/24 02/02/24 History fluticasone propionate 50 1 spray intranasal Q12H 02/02/24 02/02/24 History mcg/actuation nasal spray,suspension hydroxyzine HCl 25 mg tablet 25 mg PO Q8H PRN anxiety 02/02/24 02/02/24 History ibuprofen 800 mg tablet (IBU) 800 mg PO Q8H 02/02/24 02/02/24 History Allergies Allergy/AdvReac Type Severity Reaction Status Date / Time erythromycin base Allergy Hives Verified 02/02/24 10:15 Exam Narrative Exam Narrative: Constitutional: Awake, alert, comfortable, well-appearing, nontoxic, interactive, vital signs as charted Head: Normocephalic, atraumatic Neck: Supple, normal appearance, normal range of motion, no meningeal signs, no lymphadenopathy Respiratory: No respiratory distress, breath sounds clear Cardiovascular: Regular rate and rhythm, strong and regular heart tones Skin: No rashes or induration, no lesions, only visible skin inspected Neuro: No neurological deficits, normal sensation Psychiatric: Oriented ?3, normal affect Assessment and Plan Assessment and Plan (1) Knee pain: Qualifiers: Chronicity: unspecified Laterality: left Qualified Code(s): M25.562 - Pain in left knee (2) Medial meniscus tear: Qualifiers: Laterality: left Plan Left knee arthroscopy, medial meniscectomy scheduled with Dr. Maki February 09, 2024.
[2024-02-02 10:51] LABS: Basophils Percent Auto 0.5 % (0.2-2.0); Eosinophils Absolute Auto 0.2 10^3/uL (0.0-0.7); Eosinophils Percent Auto 1.7 % (0.9-7.0); Hematocrit 41.7 % (36.0-48.0); Hemoglobin 13.9 g/dL (12.0-16.0); Immature Granulocytes Abs Auto 0.05 10^3/uL (0.00-0.03); Immature Granulocytes Pct Auto 0.6 % (0.0-0.5); Lymphocytes Absolute Auto 2.6 10^3/uL (1.2-3.8); Lymphocytes Percent Auto 30.3 % (20.5-60.0); Mean Corpuscular HGB Conc 33.3 g/dL (29.9-35.2); Mean Corpuscular Hemoglobin 31.9 pg (26.7-34.0); Mean Corpuscular Volume 95.6 fL (81.0-99.0); Mean Platelet Volume 10.6 fL (9.5-13.5); Monocytes Absolute Auto 0.6 10^3/uL (0.3-0.8); Monocytes Percent Auto 6.9 % (1.7-12.0); Neutrophils Absolute Auto 5.2 10^3/uL (1.4-6.5); Platelet Count 169 10^3/uL (150-450); Red Blood Count 4.36 10^6/uL (4.20-5.40); Red Cell Distribution Width 11.8 % (11.0-15.0); White Blood Count 8.7 10^3/uL (4.0-11.0)
[2024-02-02 11:36] LABS: BUN Creatinine Ratio 15.6; Calcium 8.4 mg/dL (8.5-10.1); Carbon Dioxide 27.1 mmol/L (21.0-32.0); Chloride 105 mmol/L (98-107); Estimated GFR (African America >60 (>=60 mL/min/1.73m^2); Estimated GFR (Non-African Ame >60 (>=60 mL/min/1.73m^2); Glucose 86 mg/dL (74-106); Potassium 4.1 mmol/L (3.5-5.1); Sodium 140 mmol/L (136-145)
== END 2024-02-02 09:45 | disposition home or self-care (01) ==
LOC: PST 09:46
PROVIDERS: PCP Family Medicine; Visit Provider Orthopaedic Surgery
DX: Z01.810 Encounter for preprocedural cardiovascular examination (principal); Z01.812 Encounter for preprocedural laboratory examination; Z01.818 Encounter for other preprocedural examination; S83.232A Complex tear of medial meniscus, current injury, left knee, initial encounter
CPT/HCPCS: 36415; 80048; 85025; 93005; G0463

== ENCOUNTER 2024-02-09 11:51 | Day surgery (SDC) | payer BC, SELFPAY ==
[2024-02-02 10:33] VITALS: BP 120/85; PULSE 86; TEMP 36.3; O2SAT 97; BMI 35.6
[2024-02-09] VITALS (16 sets, daily range): BP systolic 69–131; BP diastolic 45–96; PULSE 88–106; TEMP 36.6–36.7; O2SAT 89–95; BMI 35.2
[2024-02-09] MEDS: LACTATED RINGER'S SOLUTION 1,000 ML 50 ML IV ×2 (12:51→14:00)
[2024-02-09] MEDS: CEFAZOLIN SODIUM 2 GM/50 ML D5W PREMIX IV (13:07)
[2024-02-09] MEDS: BUPIVACAINE HCL 0.5% PF 50 MG/10 ML VIAL 20 ML INJ (13:54)
[2024-02-09] MEDS: LIDOCAINE HCL 1%-EPINEPHRINE 1:100,000 20 ML MDV 10 ML INJ (13:54)
--- NOTE | 2024-02-09 14:03 | P.ORPRC_ITS ---
Procedure Note Date of procedure: 02/09/24 Pre-op diagnosis: Left knee medial meniscus tear Procedure: Procedure: Left knee arthroscopic partial medial meniscectomy Operation: After informed consent was obtained the patient was brought to the operating room where general anesthetic was administered. Exam under anesthesia the left knee revealed full range of motion and no instability. The left leg was prepped and draped in the usual sterile fashion. Diagnostic arthroscopy was performed through standard anterior medial and anterolateral thoracically portals. Findings in the patellofemoral compartment included intact articular cartilage. Mild amount of synovitis within the suprapatellar pouch. In the medial compartment there was a complex tear of the posterior horn of the medial meniscus which is debrided with arthroscopic biters and shaver back to stable edge. A 65% meniscectomy was performed. 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 Unstable articular cartilage flaps were debrided with arthroscopic shaver back to stable edge. Articular cartilage of the medial tibial plateau was intact. In the notch the ACL and PCL were intact. In the lateral compartment the lateral meniscus was intact. Articular cartilage of the lateral tibial plateau had diffuse grade II chondromalacia without unstable articular cartilage flaps. Articular cartilage of the lateral femoral condyle was intact. Knee joint was drained of arthroscopy fluid. Portals were closed with an absorbable suture. The joint was infiltrated with 20 mL 0.5% Marcaine plain com bined with 10 mL 1% lidocaine with epinephrine. Steri-Strips and sterile dressing were placed. Patient was awakened and brought to the recovery room in stable condition. There were no intraoperative or immediate postoperative complications. Anesthesia: General-LMA Surgeon: Tristan Maki Estimated blood loss (mL): 1 Pathology: none sent Condition: stable Disposition: PACU
[2024-02-09] MEDS: HYDROMORPHONE HCL 0.5 MG/0.5 ML SYRINGE IV ×2 (14:22→14:33)
[2024-02-09] MEDS: OXYCODONE HCL/ACETAMINOPHEN 5MG/325MG 1 TAB PO (15:08)
== END 2024-02-09 16:20 | disposition home or self-care (01) ==
PROVIDERS: PCP Family Medicine; Visit Provider Orthopaedic Surgery
PROC: (CPT 1400; principal; 2024-02-09 13:00)
DX: S83.232A Complex tear of medial meniscus, current injury, left knee, initial encounter (principal); M94.262 Chondromalacia, left knee; X58.XXXA Exposure to other specified factors, initial encounter; Z90.710 Acquired absence of both cervix and uterus; F17.210 Nicotine dependence, cigarettes, uncomplicated; E66.01 Morbid (severe) obesity due to excess calories; Z68.36 Body mass index [BMI] 36.0-36.9, adult; K21.9 Gastro-esophageal reflux disease without esophagitis
CPT/HCPCS: 29881; J0665; J0690; J1100; J1171; J1885; J2250; J2371; J2405; J2704; J3010